=== PATIENT | male | born 1960 ===

== ENCOUNTER 2016-10-19 05:41 | Emergency (ER) | payer OTHER ==
[2016-10-19] MEDS ORDERED: PREDNISONE 20 MG TABLET ONE (06:45)
== END 2016-10-19 06:59 | disposition home or self-care (01) ==
LOC: ED 05:41
DX: T78.3XXA Angioneurotic edema, initial encounter (principal); H01.9 Unspecified inflammation of eyelid; I10 Essential (primary) hypertension